=== PATIENT | male | born 1950 | race Caucasian/White ===

== ENCOUNTER 2020-10-28 07:48 | Outpatient (CLI) | payer MEDICARE ==
--- NOTE | 2020-10-28 10:51 | ULT ---
ABDOMINAL AORTIC ULTRASOUND: HISTORY: Abdominal aortic aneurysm screening. Real-time imaging of the abdominal aorta shows the proximal aor ta to measure 2.7 cm in AP dimension, mid 2.3, and distal 2.0 cm in size. The common iliac arteries measure in the 1.1 cm range. Significant plaque formation is present. IMPRESSION: No evidence of abdominal aortic aneurysm. Marked atherosclerotic change. POS: [facility]
== END 2020-10-28 07:49 | disposition home or self-care (01) ==
LOC: BICULT 07:48
PROVIDERS: ATTEND Family Medicine
DX: Z13.6 Encounter for screening for cardiovascular disorders (principal); I70.90 Unspecified atherosclerosis
CPT/HCPCS: 76775

== ENCOUNTER 2022-10-28 09:04 | Outpatient (CLI) | payer MEDICARE ==
[2022-10-28 09:53] LABS: #Basophils 0.1 10x3/uL (0.0-0.2); #Eosinphils 0.3 10x3/uL (0.0-0.5); #Monocytes 0.7 10x3/uL (0.0-1.1); #Neutrophils 5.6 10x3/uL (1.5-8.4); %Basophils 0.6 % (0.0-2.0); %Eosinophils 3.3 % (0.0-6.0); %Lymphocytes 18.9 % (18.0-47.0); %Monocytes 8.1 % (0.0-10.0); %Neutrophils 68.9 % (40.0-75.0); Hemoglobin 14.2 g/dL (13.5-17.5); Mean Corpuscular HGB CONC 35.1 g/dL (32.0-36.0); Mean Corpuscular Volume 102.5 fl (81.2-95.1); Mean Platelet Volume 9.5 fl (7.4-10.4); Platelet Count 316 10x3/uL (150-450); RBC Distribution Width 13.8 % (11.5-14.5); Red Blood Cell (RBC) Count 3.94 10x6/uL (4.32-5.72); White Blood Cell (WBC) Count 8.2 10x3/uL (3.5-10.5)
[2022-10-28 10:19] LABS: Anion Gap 13 mmol/L (10-20); BUN (Urea Nitrogen) 15 mg/dL (8.4-25.7); Calc. Creatinine Clearance 0 mL/min (70-130); Calcium 9.3 mg/dL (7.8-10.44); Carbon Dioxide 26 mmol/L (23-31); Chloride 103 mmol/L (98-107); Estimated GFR 96; Glucose 120 mg/dL (83-110); Potassium 4.4 mmol/L (3.5-5.1); Sodium 138 mmol/L (136-145)
== END 2022-10-28 09:05 | disposition home or self-care (01) ==
LOC: LABBT 09:04
PROVIDERS: ATTEND Orthopaedic Surgery Hand Surgery
DX: Z01.818 Encounter for other preprocedural examination (principal); M72.0 Palmar fascial fibromatosis [Dupuytren]
CPT/HCPCS: 80048; 85025; 93005; 93010

== ENCOUNTER 2022-10-31 12:09 | Day surgery (SDC) | payer MEDICARE ==
[2022-10-28 12:39] VITALS: BMI 26.7
[2022-10-31] MEDS ORDERED: Collagenase Clostridium Hist. 0.9 MG VIAL ONE (13:05)
[2022-10-31] MEDS ORDERED: Collagenase Clostridium Hist. 0.9 MG VIAL FS SCH (13:30)
[2022-10-31] MEDS ORDERED: Bupivacaine PF 0.5% 30 ML VIAL ONE (13:43)
[2022-10-31] MEDS ORDERED: Sodium Chloride 0.9% 100 ML ONE (13:49)
[2022-10-31] MEDS ORDERED: CEFAZOLIN 2 GM VIAL ONE (13:49)
[2022-10-31] MEDS ORDERED: Midazolam HCl 2 mg/2 ml Vial ONE (13:51)
[2022-10-31] MEDS ORDERED: Fentanyl 250 MCG/5 ML VIAL ONE (13:51)
[2022-10-31] MEDS ORDERED: PROPOFOL 200 MG/20 ML VIAL ONE (14:04)
== END 2022-10-31 15:50 | disposition home or self-care (01) ==
LOC: SDC 12:09
PROVIDERS: ATTEND Orthopaedic Surgery Hand Surgery
PROC: 3E013TZ Introduction of Destructive Agent into Subcutaneous Tissue, Percutaneous Approach (ICD-10-PCS; principal; 2022-10-31)
DX: M72.0 Palmar fascial fibromatosis [Dupuytren] (principal); I10 Essential (primary) hypertension; F17.210 Nicotine dependence, cigarettes, uncomplicated; E11.9 Type 2 diabetes mellitus without complications; E78.5 Hyperlipidemia, unspecified; Z79.82 Long term (current) use of aspirin; Z79.84 Long term (current) use of oral hypoglycemic drugs; Z79.899 Other long term (current) drug therapy
CPT/HCPCS: 20527 ×2; J0775; J2250; J2704; J3010; J3490; S0020

== ENCOUNTER 2023-05-16 08:53 | Day surgery (SDC) | payer MEDICARE ==
[2023-05-15 14:18] VITALS: BMI 24.7
[2023-05-16] MEDS ORDERED: Bupivacaine PF 0.5% 30 ML VIAL ONE (09:45)
[2023-05-16] MEDS ORDERED: Mineral Oil Sterile 10 ML VIAL ONE (09:45)
[2023-05-16] MEDS ORDERED: Bacitracin Zinc Ointment 30 gm TUBE ONE (09:45)
[2023-05-16] MEDS ORDERED: CEFAZOLIN 2 GM VIAL ONE (13:49)
[2023-05-16] MEDS ORDERED: Sodium Chloride 0.9% 100 ML ONE (13:49)
[2023-05-16] MEDS ORDERED: Fentanyl 250 MCG/5 ML VIAL ONE (13:58)
[2023-05-16] MEDS ORDERED: Ondansetron PF 4 MG/2 ML Vial ONE (14:09)
[2023-05-16] MEDS ORDERED: Ketorolac Tromethamine 30 MG/ML VIAL ONE (14:09)
[2023-05-16] MEDS ORDERED: PROPOFOL 200 MG/20 ML VIAL ONE (14:09)
[2023-05-16] MEDS ORDERED: Lidocaine 1% PF 5 ML VIAL ONE (14:09)
[2023-05-16] MEDS ORDERED: ePHEDrine Sulfate 50 MG/10 ML VIAL ONE (14:09)
[2023-05-16] MEDS ORDERED: Dexamethasone 20 MG/5 ML VIAL ONE (14:09)
[2023-05-16] MEDS ORDERED: fentaNYL PF 100 MCG/2 ML SYRINGE ONE (14:56)
[2023-05-16] MEDS ORDERED: Ondansetron HCl/PF 4 MG/2 ML Vial IVP PRN (15:35)
[2023-05-16] MEDS ORDERED: PACU-Morphine 4MG/ML VIAL SLOW IVP PRN (15:35)
[2023-05-16] MEDS ORDERED: Morphine Sulfate 2 MG/ML SYRINGE SLOW IVP PRN (15:35)
[2023-05-16] MEDS ORDERED: HYDROmorphone 2 MG/ML VIAL SLOW IVP PRN (15:35)
[2023-05-16] MEDS ORDERED: Promethazine HCl 25 MG/ML VIAL IM PRN (15:35)
== END 2023-05-16 16:55 | disposition home or self-care (01) ==
LOC: SDC 08:53
PROVIDERS: ATTEND Orthopaedic Surgery Hand Surgery
PROC: 0HRGX73 Replacement of Left Hand Skin with Autologous Tissue Substitute, Full Thickness, External Approach (ICD-10-PCS; principal; 2023-05-16)
DX: S41.102A Unspecified open wound of left upper arm, initial encounter (principal); M72.0 Palmar fascial fibromatosis [Dupuytren]; I10 Essential (primary) hypertension; E11.9 Type 2 diabetes mellitus without complications; E78.5 Hyperlipidemia, unspecified; J30.9 Allergic rhinitis, unspecified; F17.210 Nicotine dependence, cigarettes, uncomplicated; Z79.82 Long term (current) use of aspirin; Z79.899 Other long term (current) drug therapy
CPT/HCPCS: J1100; J1885; J2405; J2704; J3010; J3490; S0020